=== PATIENT | female | born 1945 | race African-American/Black ===

== ENCOUNTER 2019-10-02 08:09 | Emergency (ER) | payer OTHER ==
[2019-10-02 08:16] VITALS: BP 118/64; PULSE 70; TEMP 98.2; BMI 22.4
[2019-10-02 09:07] LABS: BASO % 0.9 % (0-2.0); EOS % 0.4 % (0-4.5); HEMATOCRIT 38.2 % (32.4-45.2); HEMOGLOBIN 12.7 GM/dL (10.7-15.3); LYMPH % 29.5 % (8-40); MCH 29.9 pg (25.7-33.7); MCHC 33.3 g/dl (32.0-36.0); MEAN CELL VOLUME 89.8 fl (80-96); MEAN PLT VOLUME 7.9 fl (7.5-11.1); NEUT % 58.2 % (42.8-82.8); PLATELET COUNT 163 K/MM3 (134-434); RBC 4.25 M/mm3 (3.60-5.2); RDW 14.8 % (11.6-15.6); WHITE BLOOD COUNT 5.2 K/mm3 (4.0-10.0)
--- NOTE | 2019-10-02 09:11 | PDOC ---
History of Present Illness - General Chief Complaint: Weakness Stated Complaint: Syncope/Near Syncope Time Seen by Provider: 10/02/19 08:19 History Source: Patient Exam Limitations: No Limitations - History of Present Illness Initial Comments: 10/02/19 09:04 74F with a PMH of HTN, HLD, hypothyroidism on 81mg asa who presents to the ER with complaints of cough and weakness. The patient states that she's had 5 days of a cough with worsening weakness, chills, and "dizzy spells" which she describes as lightheadedness. She states that this morning, she became so weak that she had to let herself down to the ground. She denies CP, SOB, abdominal pain, dysuria, numbness, tingling, and weakness, sore throat, congestion, and myalgias. Past History - Past Medical History Allergies/Adverse Reactions: Allergies Allergy/AdvReac Type Severity Reaction Status Date / Time No Known Allergies Allergy Verified 10/02/19 08:16 Home Medications: Ambulatory Orders Amlodipine Besylate 10 mg PO DAILY 10/02/19 Aspirin [ASA -] 81 mg PO DAILY 10/02/19 Cyclosporine [Restasis] 1 each OP BID 10/02/19 Levothyroxine [Synthroid -] 25 mcg PO DAILY 10/02/19 Lisinopril 20 mg PO DAILY 10/02/19 Oseltamivir Phosphate [Tamiflu -] 75 mg PO BID #10 capsule 10/02/19 - Psycho Social/Smoking Cessation Hx Smoking History: Unknown if ever smoked Have you smoked in the past 12 months: No Information on smoking cessation initiated: No Hx Alcohol Use: No Drug/Substance Use Hx: No Review of Systems - Review of Systems Comments:: 10/02/19 09:06 GENERAL/CONSTITUTIONAL: + for chills and weakness. No fever. HEAD, EYES, EARS, NOSE AND THROAT: + for sore throat. No change in vision. No ear pain or discharge. CARDIOVASCULAR: + for lightheadedness. No chest pain or palpitations. RESPIRATORY: + for cough. No wheezing, shortness of breath, or hemoptysis. GASTROINTESTINAL: No abdominal pain, nausea, vomiting, diarrhea, or constipation. GENITOURINARY: No dysuria, frequency, hematuria, or change in urination. MUSCULOSKELETAL: No joint or muscle swelling or pain. No neck or back pain. SKIN: No rash or lesions. NEUROLOGIC: No headache, numbness, tingling, focal weakness, loss of consciousness, or change in strength/sensation. *Physical Exam - Vital Signs Last Vital Signs Temp Pulse Resp BP Pulse Ox 98.2 F 70 16 118/64 100 10/02/19 08:14 10/02/19 08:14 10/02/19 08:14 10/02/19 08:14 10/02/19 08:14 - Physical Exam 10/02/19 09:08 GENERAL: Well developed, well nourished. Awake and alert. No acute distress. HEENT: Normocephalic, atraumatic. Hearing grossly normal. Moist mucous membranes. PERRLA, EOMI. No conjunctival pallor. Sclera are non-icteric. NECK: Supple. Full ROM. No JVD. CARDIOVASCULAR: Irregularly irregular rate and rhythm. No murmurs, rubs, or gallops. PULMONARY: No evidence of respiratory distress. Lungs clear to auscultation bilaterally. No wheezing, rales or rhonchi. ABDOMINAL: Soft. Non-tender. Non-distended. No rebound or guarding. GENITOURINARY: No CVA tenderness bilaterally. MUSCULOSKELETAL: Normal range of motion at all joints. No bony deformities or tenderness. EXTREMITIES: No cyanosis. No clubbing. No edema. No calf tenderness or swelling. SKIN: Warm and dry. Normal capillary refill. No rashes. No jaundice. NEUROLOGICAL: Alert, awake, appropriate. Cranial nerves 2-12 grossly intact. Normal speech. Gait is normal without ataxia. PSYCHIATRIC: Cooperative. Good eye contact. Appropriate mood and affect. ED Treatment Course - LABORATORY CBC & Chemistry Diagram: 10/02/19 08:43 10/02/19 08:43 - RADIOLOGY Radiology Studies Ordered: Category Date Time Status CHEST X-RAY PORTABLE* [RAD] Stat Radiology 10/02/19 08:20 Ordered Medical Decision Making - Medical Decision Making 10/02/19 09:08 74F with a PMH of HTN, HLD, hypothyroidism who presents to the ER with complaints of cough, chills, weakness, and lightheadedness concerning for PNA vs other causes. EKG shows NSR. Pending labs and CXR to evaluate for PNA. 10/02/19 09:56 CXR negative. Labs WNL. Influenza A +. Will hydrate and give IV tylenol and d/c with PCP f/u and tamiflu as pt's age and comorbidities allow for treatment in >48 hour window. Discharge - Discharge Information Problems reviewed: Yes Clinical Impression/Diagnosis: Influenza A Condition: Good Disposition: HOME - Admission No - Additional Discharge Information Prescriptions: Oseltamivir Phosphate [Tamiflu -] 75 mg PO BID #10 capsule - Follow up/Referral Referrals: Octavio Melton [Primary Care Provider] - - Patient Discharge Instructions Patient Printed Discharge Instructions: DI for Influenza -- Adult Additional Instructions: Your ER visit is not complete until your follow up with your primary care physician. Please follow up with your primary care physician in 1-2 days. Please return to the ER if you have any signs or symptoms of chest pain, shortness of breath, uncontrollable fever, chills, nausea, vomiting, numbness, tingling, or weakness in any part of your body, changes in vision, or slurred speech. Please take your medications as prescribed. Please return to the ER if symptoms persist, worsen, or new symptoms arise. - Post Discharge Activity
[2019-10-02 09:25] LABS: INR 0.9 (0.83-1.09); PROTHROMBIN TIME (PATIENT) 10.6 SEC (9.7-13.0)
[2019-10-02 09:34] LABS: ALBUMIN 3.8 g/dl (3.4-5.0); ALK PHOS 63 U/L (45-117); ANION GAP 5 MMOL/L (8-16); BILIRUBIN,TOTAL 0.4 mg/dL (0.2-1); BLOOD UREA NITROGEN 9.2 mg/dL (7-18); CALCIUM 8.6 mg/dL (8.5-10.1); CHLORIDE 103 mmol/L (98-107); CO2 29 mmol/L (21-32); CREATININE 0.9 mg/dL (0.55-1.3); GLUCOSE,RANDOM 94 mg/dL (74-106); POTASSIUM 3.9 mmol/L (3.5-5.1); SGOT/AST 27 U/L (15-37); SGPT/ALT 25 U/L (13-61); SODIUM 137 mmol/L (136-145); TOT PROT 7.5 g/dl (6.4-8.2)
[2019-10-02] MEDS ORDERED: ENOXAPARIN NA (PORCINE) 60 MG/0.6 ML DISP.SYRIN SQ SCH (09:45)
[2019-10-02] MEDS ORDERED: ENOXAPARIN NA (PORCINE) 60 MG/0.6 ML DISP.SYRIN SQ ONE (09:51)
[2019-10-02] MEDS ORDERED: SODIUM CHLORIDE 0.9% 1000 ML INFUS.BAG IV ONE (10:31)
[2019-10-02] MEDS ORDERED: ACETAMINOPHEN 1000 MG/100 ML VIAL (NON FORMULARY) IVPB ONE (10:31)
[2019-10-02] MEDS ORDERED: ACETAMINOPHEN INJECTION 100 ML IVPB ONE (10:35)
--- NOTE | 2019-10-02 10:46 | PDOC ---
Documentation entered by Donavan Hoffman SCRIBE, acting as scribe for Aung Tineo MD. Aung Tineo MD: This documentation has been prepared by the Dalton clemente Xhesika, SCRIBE, under my direction and personally reviewed by me in its entirety. I confirm that the documentation accurately reflects all work, treatment, procedures, and medical decision making performed by me. Attending Attestation - Resident Resident Name: DenzeljosiahBasilio - ED Attending Attestation I have performed the following: I have examined & evaluated the patient, The case was reviewed & discussed with the resident, I agree w/resident's findings & plan, Exceptions are as noted - HPI HPI: 10/02/19 09:27 The patient is a 74 year old female with a significant past medical history of HTN, HLD, and hypothyroidism (on 81mg asa) who presents to our ED with 5 days of feeling weak and fatigued. Patient notes she saw her PCP on Wednesday09/29/19 for sore throat, nausea, chills, cough, diarrhea and rhinorrhea. Pt denies any chest pain or palpitations but notes that every 2-3 months she endorses palpitations. The patient denies headache, dizziness, vomiting, and constipation. The patient denies dysuria, frequency, urgency and hematuria. Patient denies any recent travel or sick contacts. Allergies: NKDA Social Hx: Denies current smoking, drinking, or other substance usage. PCP: Dr. Reina - Physicial Exam PE: 10/02/19 09:27 Vitals: Triage Vital signs reviewed General Appearance: no acute distress, well nourished well developed, Throat: Posterior oropharynx without erythema, mucous membranes moist, Neck: Supple;No Nuchal rigidity Chest Wall: Nontender Cardiac: Regular rate and rhythm, no murmurs, no rubs, no gallops, Lungs: Clear to auscultation bilateral, good air movement bilaterally, Abdomen: Soft, nondistended, normal bowel sounds, nontender to palpation Extremities: Full range of motion to all extremities, no cyanosis, clubbing, or edema Skin: Warm and dry, no rashes or lesions, no petechiae Neuro: AOX3; Cranial Nerves 2-12 grossly c intact, Strength intact to all extremities, Sensation intact to all extremities Psych: normal mood, normal affect - Medical Decision Making 12/02/19 10:46 History of paroxysmal A. fib EKG with similar patient's name demonstrated A. fib with RVR 1 dose Lovenox given Upon further review after name mismatch patient's rhythm was rate controlled. Informed patient that she received 1 dose of Lovenox risks and benefits of this one dose medication explained to patient. No additional intervention needed Patient flu positive remainder of labs are unremarkable given age we will start patient on Tamiflu Patient feels comfortable returning home Findings, the need for follow-up and strict return instructions discussed with patient.
--- NOTE | 2019-10-02 17:34 | EKG ---
Test Reason : Blood Pressure : / mmHG Vent. Rate : 054 BPM Atrial Rate : 054 BPM P-R Int : 190 ms QRS Dur : 070 ms QT Int : 428 ms P-R-T Axes : 059 007 015 degrees QTc Int : 405 ms POOR DATA QUALITY, INTERPRETATION MAY BE ADVERSELY AFFECTED SINUS BRADYCARDIA WITH SINUS ARRHYTHMIA LOW VOLTAGE QRS NONSPECIFIC ST ABNORMALITY ABNORMAL ECG NO PREVIOUS ECGS AVAILABLE Confirmed by YULIA SUAREZ MD ([id number]) on 10/02/2019 5:34:00 PM Referred By: Confirmed By:YULIA SUAREZ MD
== END 2019-10-02 11:35 | disposition home or self-care (01) ==
LOC: JER 08:09
PROC: 3E023GC Introduction of Other Therapeutic Substance into Muscle, Percutaneous Approach (ICD-10-PCS; principal; 2019-10-02)
PROC: 3E033NZ Introduction of Analgesics, Hypnotics, Sedatives into Peripheral Vein, Percutaneous Approach (ICD-10-PCS; 2019-10-02)
DX: J09.X2 Influenza due to identified novel influenza A virus with other respiratory manifestations (principal); I48.20 Chronic atrial fibrillation, unspecified; Z79.01 Long term (current) use of anticoagulants; G40.909 Epilepsy, unspecified, not intractable, without status epilepticus; I10 Essential (primary) hypertension; E78.5 Hyperlipidemia, unspecified; E03.9 Hypothyroidism, unspecified; Z79.82 Long term (current) use of aspirin
CPT/HCPCS: 36415; 71045-TC-FY; 80053; 82550; 82553; 84443; 84484; 85025; 85610; 87804; 93005; 93010; 96372; 96374; 99284-25; J0131; J7030

== ENCOUNTER 2023-10-27 03:57 | Day surgery (SDC) | payer OTHER ==
[2023-10-26 09:28] VITALS: BMI 24.3
[2023-10-27] MEDS ORDERED: LIDOCAINE HCL/PF 2% SDV 5ML VIAL ONE (13:18)
[2023-10-27] MEDS ORDERED: MIDAZOLAM HCL 2 MG/2 ML SINGLE DOSE VIAL ONE (13:18)
[2023-10-27] MEDS ORDERED: PROPOFOL 20 ML ONE (13:18)
[2023-10-27] MEDS ORDERED: ceFAZolin SODIUM 1 GM VIAL ONE (13:58)
[2023-10-27] MEDS ORDERED: DEXAMETHASONE SOD PHOSPHATE 4 MG/1 ML VIAL ONE (13:58)
[2023-10-27] MEDS ORDERED: ceFAZolin SODIUM 1 GM VIAL IVPB ONE (14:05)
[2023-10-27] MEDS ORDERED: ONDANSETRON 4 MG/2 ML VIAL ONE (14:26)
[2023-10-27] MEDS ORDERED: KETOROLAC TROMETHAMINE 30 MG/1 ML VIAL ONE (14:26)
[2023-10-27] MEDS ORDERED: ONDANSETRON 4 MG/2 ML VIAL IVPUSH PRN (14:47)
[2023-10-27] MEDS ORDERED: PROMETHAZINE HCL 25 MG/1 ML VIAL IVPB PRN (14:47)
[2023-10-27] MEDS ORDERED: oxyCODONE HCL 5 MG TABLET PO PRN ×2 (14:47)
[2023-10-27] MEDS ORDERED: ACETAMINOPHEN 1000 MG/100 ML BAG IVPB ONE ×2 (14:48→15:08)
[2023-10-27] MEDS ORDERED: LACTATED RINGERS SOLUTION 1,000 ML IV SCH (15:00)
[2023-10-27 15:48] VITALS: RESP 18
[2023-10-27 16:54] VITALS: BP 148/73; PULSE 74; TEMP 97.4
== END 2023-10-27 17:12 | disposition home or self-care (01) ==
LOC: JASU-SURG 03:57
PROVIDERS: ATTEND Obstetrics & Gynecology
PROC: 0U7 Female Reproductive System, Dilation (ICD-10-PCS; 2023-10-27)
PROC: 0UJD8ZZ Inspection of Uterus and Cervix, Via Natural or Artificial Opening Endoscopic (ICD-10-PCS; principal; 2023-10-27 13:00)
DX: R93.89 Abnormal findings on diagnostic imaging of other specified body structures (principal); N88.2 Stricture and stenosis of cervix uteri
CPT/HCPCS: 88305-TC; 94760